=== PATIENT | male | born 1950 | race Caucasian/White ===

== ENCOUNTER 2024-04-28 22:35 | Inpatient (IN) | payer MEDICARE, BC, SELFPAY ==
--- NOTE | 2024-04-28 | ECG_ITS ---
Test Reason : A-FIB Blood Pressure : */* mmHG Vent. Rate : 91 BPM Atrial Rate : * BPM P-R Int : * ms QRS Dur : 90 ms QT Int : 340 ms P-R-T Axes : * -47 32 degrees QTcB Int : 418 ms Atrial fibrillation Left anterior fascicular block Abnormal ECG No previous ECGs available Referred By: Generic ED Physician Electronically Signed By: Robbie Cruz
--- NOTE | ~2024-04-28 | XR_ITS ---
CLINICAL HISTORY: sob 1 view chest x-ray Comparison: None Findings: No consolidation or effusion. Normal size heart. No acute fracture. IMPRESSION: 1. No acute findings. This document has been electronically signed by: Mulu Rodgers MD on 04/29/2024 01:10:02
[2024-04-28 22:47] VITALS: BP 96/67; PULSE 91; RESP 17; TEMP 36.6; O2SAT 100; BMI 21.8
--- NOTE | 2024-04-28 23:30 | MHC.EDTECH ---
Patient came in from triage, patient was changed into hospital attire,placed on the cardiac rehabilitation program director, at bedside call lopez in reach
[2024-04-28 23:40] LABS: MANUAL DIFF FLAG NO
[2024-04-28 23:41] LABS: Basophils Percent Auto 0.2 % (0-2); Eosinophils Percent Auto 0.5 % (0-4); Hematocrit 40.3 % (42.0-52.0); Hemoglobin 13.9 g/dl (14.0-18.0); Imm Gran Abs Auto 0.01 X10*3/uL (0.00-0.03); Imm Gran Pct Auto 0.2 % (0.0-0.4); Lymphocytes Absolute Auto 0.4 X10*3/uL (1.2-4.9); Lymphocytes Percent Auto 6.6 % (20-40); Mean Corpuscular HGB Conc 34.5 g/dl (31.0-36.0); Mean Corpuscular Hemoglobin 31.4 pg (27.0-33.0); Mean Platelet Volume 9.8 fL (9.4-12.4); Monocytes Absolute Auto 0.3 X10*3/uL (0.1-1.2); Monocytes Percent Auto 5.6 % (2-11); Neutrophils Absolute Auto 4.8 x10*3/uL (2.0-8.3); Neutrophils Percent Auto 86.9 % (45-73); Platelet Count 190 X10*3/uL (160-400); Red Blood Count 4.43 X10*6/uL (4.60-5.80); Red Cell Distribution Width 13.9 % (11.0-16.0); White Blood Count 5.5 X10*3/uL (4.8-10.8)
[2024-04-28 23:55] LABS: Alanine Aminotransferase 24 U/L (0-40); Albumin Level 3.9 g/dL (3.5-5.0); Alkaline Phosphatase 66 U/L (39-117); Anion Gap 10 (12-20); Aspartate Amino Transferase 36 U/L (5-37); Bilirubin Direct 0.2 mg/dL (0.0-0.5); Bilirubin Total 0.5 mg/dL (0.0-1.0); Blood Urea Nitrogen 24 mg/dL (9-16); Calcium 9.2 mg/dL (8.4-10.2); Carbon Dioxide 28 mmol/L (22-29); Chloride 104 mmol/L (96-108); Creatinine Clr Calc Pharmacy 73.9; Estimated Glomerular Filt Rate > 60; Glucose Random 95 mg/dL (60-115); Potassium 4.4 mmol/L (3.3-5.1); Sodium 138 mmol/L (135-145); Total Protein 7.1 g/dL (6.5-8.0)
[2024-04-29] VITALS (15 sets, daily range): BP systolic 85–106; BP diastolic 52–82; PULSE 58–99; RESP 10–18; TEMP 36.1–36.9; O2SAT 96–99; BMI 22.0
[2024-04-29] LABS: Troponin-I High Sensitivity 2.7 ng/L (<3.5-35.0)
[2024-04-29 00:26] LABS: B Type Natriuretic Peptide 105 pg/mL (<100)
--- NOTE | 2024-04-29 00:50 | ED_ITS ---
HPI - Arrhythmia/Palpitations General Chief Complaint: Arrhythmia/Palpitations Stated Complaint: ?a-fib Time Seen by Provider: 04/28/24 23:37 Source: patient and family Mode of arrival: ambulatory Limitations: no limitations History of Present Illness ED Provider: Dr. Isabella Bean HPI narrative: Patient comes to the emergency room accompanied by his . Patient states that his telephone karoline warned the patient that he was in atrial fibrillation with RVR. According to the patient, he does have history of AFib. However, it has been controlled for over 5 years. Patient recently moved from [place] with his . Patient states that earlier today he did have a bit of shortness of breath with going up the stairs. However, this time he is completely asymptomatic. 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 Since patient's heart rate and rhythm was controlled, patient's railroad track inspector in [place] took him off blood thinners. Patient denies any lower extremity edema. Patient states that he feels well. patient states that he is otherwise in good health. Patient exercises everyday, does 160 pushups everyday and over 200 sit-ups. Related Data Allergies Allergy/AdvReac Type Severity Reaction Status Date / Time No Known Allergies Allergy Verified 04/28/24 22:49 Review of Systems 2 Review of Systems: Constitutional : No Weight loss, No Fever, No Chills, No Night Sweats, No Fatigue, No Malaise ENT/Mouth : No Hearing loss, No Ear Pain, No Nasal Congestion, No Sinus Pain, No Hoarseness, No sore throat, No Rhinorrhea, No Swallowing Difficulty Eyes: No Eye Pain, No Swelling, No Redness, No Foreign Body, No Discharge, No Vision Changes Cardiovascular : No Chest Pain, No SOB, No Dyspnea on Exertion, No Orthopnea, does not feel any palpitations, states that his heart monitor/ phone karoline warned him of being in AFib with RVR Respiratory : No Cough, No Sputum, No Wheezing, No Smoke Exposure, No Dyspnea Gastrointestinal : No Nausea, No Vomiting, No Diarrhea, No Constipation, No abdominal Pain, No Hematochezia, No Melena Genitourinary : no irregular bleeding, No Dysuria, No Urinary Frequency, No Hematuria, No Urinary Incontinence, No Urgency, No Flank Pain, No Urinary Flow Changes, No Hesitancy Musculoskeletal : No joint pain, No Myalgias, No Joint Swelling Skin : No Skin Lesions, No rash Neuro : No Weakness, No Numbness, No Paresthesias, No Loss of Consciousness, No Dizziness, No Headache Psych : No Anxiety/Panic, No Depression, No SI/HI/AH/VH, No Social Issues, Heme/Lymph: No Bruising, No Bleeding,No Lymphadenopathy Endocrine : No Polyuria, No Polydipsia, No Temperature Intolerance [facility] Past Medical History Medical History (Updated 04/29/24 @ 01:13 by Isabella Bean MD) Hyperlipidemia Atrial fibrillation Surgical History (Updated 04/29/24 @ 00:57 by Isabella Bean MD) H/O aortic valve replacement with porcine valve Social History Social History Advance Directives: No Advance Directives Information Provided: Yes Do you have a plan to hurt others: No Plan Physical Exam 2 Vital Signs: Vital Signs: Last Vital Signs Temp 97.8 F 04/28/24 22:47 Pulse 91 04/28/24 22:47 Resp 17 04/28/24 22:47 BP 96/67 04/28/24 22:47 Pulse Ox 100 04/28/24 22:47 O2 Del Method Room Air 04/28/24 22:47 BMI result Body Mass Index 21.8 Const: Other: Appearance: Alert. Oriented X3. No acute distress. well-appearing Eyes: Pupils equal, round and reactive to light. ENT: Pharynx normal. Neck: Normal inspection. Neck supple. No lymph nodes noted. No crepitus CVS: irregularly irregular, rate controlled, heart rate between 90 and 100. Pulses normal. Normal S1 and S2 Respiratory: No respiratory distress. Breath sounds normal. No Wheezing. No rales Abdomen: Soft and nontender. No rigidity. No distention. Skin: Skin warm and dry. Normal skin color. Normal skin turgor. Extremities: No lower extremity edema. No Lacerations. No Rash Neuro: Oriented X 3. No motor deficit. No sensory deficit. Moving all extremities. No slurred speech. CN 2 through 12 grossly intact Psych: calm, cooperative, normal affect Medications Administered Discontinued Medications Generic Name Dose Route Start Last Admin Trade Name Freq PRN Reason Stop Dose Admin Apixaban 5 mg 04/29/24 00:46 04/29/24 00:52 Apixaban 5 Mg Tablet PO 04/29/24 00:47 5 mg ONCE ONE Administration Medical Decision Making Medical Decision Making [facility] Narrative: my interpretation of labs: No significant abnormality in patient's hematology or chemistry, troponin normal, BNP very slightly increased at 01:05. No signs of overt pulmonary edema. No lower extremity edema my interpretation of EKG: Atrial fibrillation, heart rate 91, nonspecific ST changes, no ST segment depression or elevation, QTC 418 discussed the patient with Dr. Cruz, we will Start Eliquis, and patient may need a DEVIN cardioversion tomorrow. I discussed the above-mentioned with the patient and his , patient being admitted. Dr. Rich from the Medicine team will help with the admission process Differential Diagnosis Differential Diagnoses: The differential diagnosis associated with the presentation includes ( atrial fibrillation, atrial flutter) Admission/Observation Consideration of admission/observation: Escalation of care including admission/observation considered Consult Healthcare Provider Management of the patient was discussed with: Hospitalist and Victims Advocate Clerk/Specialist Lab Data [facility] Lab Attestation statement: I reviewed the patient's lab results. 04/28/24 23:32 04/28/24 23:32 Labs: Lab Results 04/28/24 Range/Units 23:32 WBC 5.5 (4.8-10.8) X10*3/uL RBC 4.43 L (4.60-5.80) X10*6/uL Hgb 13.9 L (14.0-18.0) g/dl Hct 40.3 L (42.0-52.0) % MCV 91.0 (80.0-98.0) fL MCH 31.4 (27.0-33.0) pg MCHC 34.5 (31.0-36.0) g/dl RDW 13.9 (11.0-16.0) % Plt Count 190 (160-400) X10*3/uL MPV 9.8 (9.4-12.4) fL Immature Gran % (Auto) 0.2 (0.0-0.4) % Neut % (Auto) 86.9 H (45-73) % Lymph % (Auto) 6.6 L (20-40) % [place] % (Auto) 5.6 (2-11) % Eos % (Auto) 0.5 (0-4) % Baso % (Auto) 0.2 (0-2) % Lymph # (Auto) 0.4 L (1.2-4.9) X10*3/uL [place] # (Auto) 0.3 (0.1-1.2) X10*3/uL Eos # (Auto) 0.0 (0.0-0.4) X10*3/uL Baso # (Auto) 0.0 (0.0-0.2) X10*3/uL Abs Immat Gran (auto) 0.01 (0.00-0.03) X10*3/uL Absolute Neuts (auto) 4.8 (2.0-8.3) x10*3/uL Absolute Nucleated RBC 0.000 (0.0-0.012) X10*3/uL Nucleated RBC % (auto) 0.0 (0.0-0.2) /100WBC Sodium 138 (135-145) mmol/L Potassium 4.4 (3.3-5.1) mmol/L Chloride 104 (96-108) mmol/L Carbon Dioxide 28 (22-29) mmol/L Anion Gap 10 L (12-20) BUN 24 H (9-16) mg/dL Creatinine 0.88 (0.5-1.4) mg/dL Estim Creat Clear Calc 73.9 Estimated GFR > 60 Random Glucose 95 (60-115) mg/dL Calcium 9.2 (8.4-10.2) mg/dL Magnesium 2.0 (1.6-2.6) mg/dL Total Bilirubin 0.5 (0.0-1.0) mg/dL Direct Bilirubin 0.2 (0.0-0.5) mg/dL AST 36 (5-37) U/L ALT 24 (0-40) U/L Alkaline Phosphatase 66 (39-117) U/L Troponin I High Sens 2.7 (<3.5-35.0) ng/L B-Natriuretic Peptide 105 H (<100) pg/mL Total Protein 7.1 (6.5-8.0) g/dL Albumin 3.9 (3.5-5.0) g/dL Independent Interpretation I performed an independent interpretation of an: EKG and Plain X-Ray Radiology Impression Discussion of test interpretation with radiology: I have reviewed the radiologist's reading. Radiologist Impression: No consolidation or effusion. Normal size heart. No acute fracture. IMPRESSION: 1. No acute findings Independent Historian Clinical information obtained from an independent historian. History obtained from or confirmed by: Spouse Critical Care Time Critical Care Time Critical Care Time: Yes Total Critical Care Time: 45 Attestation: I have personally provided critical care time. Time includes review of lab data, radiology results, discussion with consultants, and monitoring for potential decompensation. Intervention performed as documented. Discharge Plan Discharge Clinical Impression: Atrial fibrillation Patient Disposition: Admitted As Inpatient Print Language: Afghan
[2024-04-29] MEDS: Apixaban 5 MG TABLET PO ×3 (00:52→21:23)
--- NOTE | 2024-04-29 01:00 | PM.IMHP ---
History of Present Illness Date of Service: 04/29/24 Chief Complaint: Palpitations This is a 74-year-old male with pertinent history of paroxysmal atrial fibrillation not on anticoagulation, mixed hyperlipidemia who presents to the emergency department for evaluation of palpitations. Patient states that he was notified by a device that he was in AFib. The last time he was in AFib was about 6 years ago. He is without any chest pain or shortness of breath. He recently moved from [place] with his . Patient had an aortic valve replacement in 2019 and was anticoagulated with Coumadin for 2 years and since then he has been off anticoagulation. No fever, chills, orthopnea, PND, abdominal pain, changes in urinary or bowel habits. Patient has no other complaints and exercises every day. In the emergency department, patient was found to be in AFib and Cardiology was consulted who requested admission with Parvez. Review of Systems Constitutional: Constitutional: Reports no additional constitutional complaints Cardiovascular: Cardiovascular: Reports rapid heart rate Respiratory: Respiratory: Reports no additional respiratory complaints Gastrointestinal: Gastrointestinal: Reports no additional gastrointestinal complaints Genitourinary: Genitourinary: Reports no additional male genitourinary complaints [facility] Medical History Hyperlipidemia Atrial fibrillation Pertinent family history: No family history of early CAD Surgical History H/O aortic valve replacement with porcine valve Social History Advance Directives: No Advance Directives Information Provided: Yes Do you have a plan to hurt others: No Plan Meds Allergies Allergy/AdvReac Type Severity Reaction Status Date / Time No Known Allergies Allergy Verified 04/28/24 22:49 Physical Exam Vital Signs and Narrative: Vital Signs: Last Vital Signs Temp 97.8 F 04/28/24 22:47 Pulse 91 04/28/24 22:47 Resp 17 04/28/24 22:47 BP 96/67 04/28/24 22:47 Pulse Ox 100 04/28/24 22:47 O2 Del Method Room Air 04/28/24 22:47 BMI result Body Mass Index 21.8 Middle-aged male lying in bed in no distress Neck supple, no JVD Irregularly irregular, S1-S2 heard Regular breath sounds bilaterally, no wheezing or crackles appreciated Abdomen soft nontender, no guarding, no rigidity Patient is awake, alert and oriented to self, place, time and person ; no focal motor deficit Psych: Normal mood No pedal edema Results Labs 04/28/24 23:32 04/28/24 23:32 Labs: Laboratory Results - last 24 hr 04/28/24 23:32 MCV 91.0 MCH 31.4 MCHC 34.5 RDW 13.9 Plt Count 190 MPV 9.8 Immature Gran % (Auto) 0.2 Neut % (Auto) 86.9 H Lymph % (Auto) 6.6 L [place] % (Auto) 5.6 Eos % (Auto) 0.5 Baso % (Auto) 0.2 Lymph # (Auto) 0.4 L [place] # (Auto) 0.3 Eos # (Auto) 0.0 Baso # (Auto) 0.0 Abs Immat Gran (auto) 0.01 Absolute Neuts (auto) 4.8 Absolute Nucleated RBC 0.000 Nucleated RBC % (auto) 0.0 Anion Gap 10 L Estim Creat Clear Calc 73.9 Estimated GFR > 60 Random Glucose 95 Calcium 9.2 Magnesium 2.0 Total Bilirubin 0.5 Direct Bilirubin 0.2 AST 36 ALT 24 Alkaline Phosphatase 66 B-Natriuretic Peptide 105 H Total Protein 7.1 Albumin 3.9 Assessment and Plan (1) Atrial fibrillation: Status: Acute Plan This is a 74-year-old male with pertinent history of paroxysmal atrial fibrillation not on anticoagulation, mixed hyperlipidemia who presents to the emergency department for evaluation of palpitations. #. Atrial fibrillation, symptomatic: Will admit patient with cardiac monitoring as per Cardiology recommendations. Initiating Eliquis. Obtaining TSH and echo. May need DEVIN cardioversion. On beta-sheri #. Mixed hyperlipidemia: On statin Med rec pending DVT prophylaxis: Eliquis Full code Quality Stroke Does the patient have a stroke diagnosis?: No VTE Prior VTE?: No VTE Risk Level:: Medical - moderate - high VTE Device Contraindication: Treatment Not Indicated VTE Drug Contraindication: N/A - Med Ordered
--- NOTE | 2024-04-29 02:23 | MHC.EDTECH ---
Rounds, vitals and belongings list completed, pt is resting quietly call lopez in reach
[2024-04-29 04:46] LABS: Hematocrit 37.2 % (42.0-52.0); Hemoglobin 13.1 g/dl (14.0-18.0); Mean Corpuscular HGB Conc 35.2 g/dl (31.0-36.0); Mean Corpuscular Hemoglobin 31.6 pg (27.0-33.0); Mean Corpuscular Volume 89.6 fL (80.0-98.0); Mean Platelet Volume 10.1 fL (9.4-12.4); Platelet Count 173 X10*3/uL (160-400); Red Blood Count 4.15 X10*6/uL (4.60-5.80); Red Cell Distribution Width 13.9 % (11.0-16.0); White Blood Count 4.7 X10*3/uL (4.8-10.8)
[2024-04-29 05:04] LABS: Anion Gap 10 (12-20); Blood Urea Nitrogen 23 mg/dL (9-16); Calcium 8.5 mg/dL (8.4-10.2); Carbon Dioxide 24 mmol/L (22-29); Chloride 106 mmol/L (96-108); Creatinine Clr Calc Pharmacy 97.1; Estimated Glomerular Filt Rate > 60; Glucose Random 104 mg/dL (60-115); Sodium 136 mmol/L (135-145)
[2024-04-29 05:21] LABS: Thyroid Stimulating Hormone 3.28 uIU/mL (0.32-4.0)
--- NOTE | 2024-04-29 07:00 | CA_ITS ---
Transesophageal Echocardiogram Patient (Last, First, Middle): Markel Summers K Gender: Male Date of : 1950 Age: 74 Procedure Date: 04/29/2024 Procedure Type: Transesophageal Echocardiogram Location: OP Height: 177.8 cm Weight: 68.95 kg BSA: 1.86 m2 Heart Rate: bpm BP: 102 / 78 mmHg Manager Of Investigations: CHRISSIE Referring MD: Robbie Cruz MD Symptoms: Afib Conclusion: ??? Normal left ventricular size and systolic function. The visually estimated ejection fraction is between 55-60%. ??? Normal right ventricular cavity size and systolic function. ??? There is no evidence of a thrombus in the left atrial appendage. ??? A bioprosthetic aortic valve is present. Findings Procedure Information Pre DEVIN oral cavity was checked and revealed no overcrowding. The adult omniplane probe was passed with difficulty. Left Ventricle Normal left ventricular size and systolic function. The visually estimated ejection fraction is between 55-60%. Right Ventricle Normal right ventricular cavity size and systolic function. Atria There is no evidence of a thrombus in the left atrial appendage. Aortic Valve A bioprosthetic aortic valve is present. The prosthetic aortic valve appears to be functioning normally. Mitral Valve The mitral valve appears normal. There is trace mitral valve regurgitation. There is no mitral valve stenosis. Pulmonic Valve The pulmonic valve was not well visualized. Tricuspid Valve Normal tricuspid valve structure. There is trace tricuspid valve regurgitation. Great Vessels All visible segments of the aorta are normal in size. Pericardium/Pleural There is no evidence of pericardial effusion. Prior Study Comparison No prior study available for comparison. Updated by Robbie Cruz on 01:05 PM with Status of Final Robbie Cruz MD electronically signed on 05/01/2024 1:05:41 PM with status of Final
--- NOTE | 2024-04-29 08:55 | MHC.CM.PN ---
CM met with Patient and his (a RN X 44r years), and addressed LOPEZ with them, providing Patient with the original and a copy will be placed on the chart.Patient just moved here from [place] about a month ago, is waiting to move into a new [facility] home here, and is temporarily staying with his Sister (at listed address). Patient required no services nor DME RABBLER and home/self care is his goal; CM has initiated and will follow for dc planning. PCP is Dr. Joon Regalado in [place]. will transport to home at [place].
--- NOTE | 2024-04-29 09:04 | PHA.MEDREC ---
Addendum entered by Edd Sawyer [facility] 04/29/24 09:14: MED REC CHECKED BY [facility] Original Note: Pharmacy Consult ? Medication Reconciliation Pharmacy has completed the medication reconciliation. Spoke with patient and he confirmed his medications. Patient confirmed his Metoprolol 25mg tab and states he cuts them in half and takes 1/2 tab twice a day. He confirmed he took his medications yesterday.
[2024-04-29] MEDS: 0.9 % Sodium Chloride Flush 3 ML SYRINGE IVFLUSH ×2 (09:13→21:25)
[2024-04-29] MEDS: Atorvastatin Calcium 20 MG TABLET PO (10:20)
--- NOTE | 2024-04-29 11:26 | P.PNIM_ITS ---
Subjective Subjective Date of Service: 04/29/24 Interval History: asymptomatic Physical Exam 2 Vital Signs: Vital Signs: Last Vital Signs Temp 97.6 F 04/29/24 11:02 Pulse 88 04/29/24 11:02 Resp 18 04/29/24 11:02 BP 106/67 04/29/24 11:02 Pulse Ox 96 04/29/24 11:02 O2 Del Method Room Air 04/29/24 11:02 BMI result Body Mass Index 21.8 General: AO X 3, no acute distress Resp: CTA bilateral, no accessory muscles used CVS: S1,S2 irreglar GI: soft, non tender, non distended Neuro: motor grossly intact, alert Psych: appropriate affect, appropriate insight Objective Data Active Medications Acetaminophen (Acetaminophen 325 Mg Tablet) 650 mg PO Q6H PRN PRN Reason: Pain, Mild 1-3,fever,headache Apixaban (Apixaban 5 Mg Tablet) 5 mg PO BID [facility] Last Admin: 04/29/24 09:12 Dose: 5 mg Documented By: GINO Atorvastatin Calcium (Atorvastatin Calcium 20 Mg Tablet) 20 mg PO DAILY [facility] Last Admin: 04/29/24 10:20 Dose: 20 mg Documented By: GINO Calcium Carbonate (Calcium Carbonate 750 Mg Tab.Chew) 750 mg PO Q4H PRN PRN Reason: Heartburn Magnesium Hydroxide (Milk Of Magnesia 30 Ml Oral.Susp) 30 ml PO DAILY PRN PRN Reason: Constipation Melatonin (Melatonin 3 Mg Tablet) 6 mg PO BEDTIME PRN PRN Reason: Insomnia Metoprolol Succinate (Metoprolol Succinate Er 12.5 Mg Halftab.Er.24h) 12.5 mg PO BID [facility]; Protocol Ondansetron HCl (Ondansetron Hcl 4 Mg/2 Ml Vial) 4 mg IVPUSH Q8H PRN PRN Reason: Nausea and Vomiting Sodium Chloride (0.9 % Sodium Chloride Flush 3 Ml Syringe) 3 ml IVFLUSH QSHIFT [facility] Last Admin: 04/29/24 09:13 Dose: 3 ml Documented By: GINO Labs 04/29/24 04:32 04/29/24 04:32 Labs: Laboratory Results - last 24 hr 04/28/24 04/29/24 23:32 04:32 MCV 91.0 89.6 MCH 31.4 31.6 MCHC 34.5 35.2 RDW 13.9 13.9 Plt Count 190 173 MPV 9.8 10.1 Immature Gran % (Auto) 0.2 Neut % (Auto) 86.9 H Lymph % (Auto) 6.6 L [place] % (Auto) 5.6 Eos % (Auto) 0.5 Baso % (Auto) 0.2 Lymph # (Auto) 0.4 L [place] # (Auto) 0.3 Eos # (Auto) 0.0 Baso # (Auto) 0.0 Abs Immat Gran (auto) 0.01 Absolute Neuts (auto) 4.8 Absolute Nucleated RBC 0.000 0.000 Nucleated RBC % (auto) 0.0 0.0 Anion Gap 10 L 10 L Estim Creat Clear Calc 73.9 97.1 Estimated GFR > 60 > 60 Random Glucose 95 104 Calcium 9.2 8.5 D Magnesium 2.0 Total Bilirubin 0.5 Direct Bilirubin 0.2 AST 36 ALT 24 Alkaline Phosphatase 66 B-Natriuretic Peptide 105 H Total Protein 7.1 Albumin 3.9 TSH 3.28 Assessment and Plan (1) Atrial fibrillation: Status: Acute Plan 74M PMH hld, pafib, bicuspid aortic valve s/p bioAVR, presented with palpitations pafib with rvr plan for ynes/cv eliquis, toprol hld statin dvt prophyalxis - elqius full code reason for continued hospitalization:ynes/cv Quality Stroke Does the patient have a stroke diagnosis?: No VTE Prior VTE?: No VTE Risk Level:: Medical - moderate - high VTE Device Contraindication: Treatment Not Indicated VTE Drug Contraindication: N/A - Med Ordered
--- NOTE | 2024-04-29 11:34 | PM.CNCAR ---
History of Present Illness History of Present Illness Date of Service: 04/29/24 Requesting physician: Alexis Desai Chief complaint: Palpitations PAF Narrative: 74 male with h/o bicuspid AV stenosis s/p AVR 6 years ago and h/o Afib. He was taken off the coumadin by his mine equipment design engineer in [place]. he has been experiencing SOB over the last 2 days. He has no CP. Clinically not in HF. ECG showing Afib. [facility] Past Medical History Medical History Hyperlipidemia Atrial fibrillation Surgical History Surgical History H/O aortic valve replacement with porcine valve Social History Social History Are you a primary cardiac care nurse to a significant other at home: No Do you presently have visiting nurse or other home services: No Patient Tobacco Use Status: Never used Tobacco Smoked in Last 30 Days: No Use of substances other than those prescribed or required for medical reasons: No Have you been hit, kicked, punched, or otherwise hurt by someone within the past year? If so, by whom?: No Are you DNR?: No Advance Directives: No Advance Directives Information Provided: Yes Do you have a plan to hurt others: No Plan Recently lost weight without trying: No Nutrition Risks: No Nutritional Risk service: Yes Meds Allergies Allergy/AdvReac Type Severity Reaction Status Date / Time No Known Allergies Allergy Verified 04/29/24 14:08 Active Medications: Current Medications Acetaminophen (Acetaminophen 325 Mg Tablet) 650 mg PO Q6H PRN PRN Reason: Pain, Mild 1-3,fever,headache Apixaban (Apixaban 5 Mg Tablet) 5 mg PO BID [facility] Last Admin: 04/29/24 09:12 Dose: 5 mg Atorvastatin Calcium (Atorvastatin Calcium 20 Mg Tablet) 20 mg PO DAILY [facility] Last Admin: 04/29/24 10:20 Dose: 20 mg Calcium Carbonate (Calcium Carbonate 750 Mg Tab.Chew) 750 mg PO Q4H PRN PRN Reason: Heartburn Magnesium Hydroxide (Milk Of Magnesia 30 Ml Oral.Susp) 30 ml PO DAILY PRN PRN Reason: Constipation Melatonin (Melatonin 3 Mg Tablet) 6 mg PO BEDTIME PRN PRN Reason: Insomnia Metoprolol Succinate (Metoprolol Succinate Er 12.5 Mg Halftab.Er.24h) 12.5 mg PO BID [facility]; Protocol Ondansetron HCl (Ondansetron Hcl 4 Mg/2 Ml Vial) 4 mg IVPUSH Q8H PRN PRN Reason: Nausea and Vomiting Sodium Chloride (0.9 % Sodium Chloride Flush 3 Ml Syringe) 3 ml IVFLUSH QSHIFT [facility] Last Admin: 04/29/24 09:13 Dose: 3 ml Home Medications ?Medication ?Instructions ?Recorded ?Confirmed ?Last Taken ?Type metoprolol succinate 25 mg 12.5 mg PO BID 04/29/24 04/29/24 04/28/24 History tablet,extended release 24 hr rosuvastatin 5 mg tablet 5 mg PO DAILY 04/29/24 04/29/24 04/28/24 History Physical Exam Vital Signs: Vital Signs: Last Vital Signs Temp 97.6 F 04/29/24 11:02 Pulse 88 04/29/24 11:02 Resp 18 04/29/24 11:02 BP 106/67 04/29/24 11:02 Pulse Ox 96 04/29/24 11:02 O2 Del Method Room Air 04/29/24 11:02 BMI result Body Mass Index 21.8 GENERAL APPEARANCE: in no acute distress, pleasant. NECK: no carotid bruit, no jugular venous distention. SKIN: no suspicious lesions, warm and dry. HEART: no murmurs, irregular rate and rhythm. LUNGS: clear to auscultation bilaterally. ABDOMEN: soft, nontender. EXTREMITIES: no edema. PERIPHERAL PULSES: equal. NEUROLOGIC: No gross deficits, AAO X 3 Objective Labs and Meds 04/29/24 04:32 04/29/24 04:32 Lab results: Laboratory Results - last 24 hr 04/28/24 04/29/24 23:32 04:32 WBC 5.5 4.7 L RBC 4.43 L 4.15 L Hgb 13.9 L 13.1 L Hct 40.3 L 37.2 L MCV 91.0 89.6 MCH 31.4 31.6 MCHC 34.5 35.2 RDW 13.9 13.9 Plt Count 190 173 MPV 9.8 10.1 Immature Gran % (Auto) 0.2 Neut % (Auto) 86.9 H Lymph % (Auto) 6.6 L [place] % (Auto) 5.6 Eos % (Auto) 0.5 Baso % (Auto) 0.2 Lymph # (Auto) 0.4 L [place] # (Auto) 0.3 Eos # (Auto) 0.0 Baso # (Auto) 0.0 Abs Immat Gran (auto) 0.01 Absolute Neuts (auto) 4.8 Absolute Nucleated RBC 0.000 0.000 Nucleated RBC % (auto) 0.0 0.0 Sodium 138 136 Potassium 4.4 4.0 Chloride 104 106 Carbon Dioxide 28 24 Anion Gap 10 L 10 L BUN 24 H 23 H Creatinine 0.88 0.67 Estim Creat Clear Calc 73.9 97.1 Estimated GFR > 60 > 60 Random Glucose 95 104 Calcium 9.2 8.5 D Magnesium 2.0 Total Bilirubin 0.5 Direct Bilirubin 0.2 AST 36 ALT 24 Alkaline Phosphatase 66 Troponin I High Sens 2.7 B-Natriuretic Peptide 105 H Total Protein 7.1 Albumin 3.9 TSH 3.28 Assessment and Plan (1) Atrial fibrillation: Status: Acute Plan 74 male with symptomatic Afib. Plan is DEVIN/cardioversion. Started on Eliquis. Will start him on Multaq post cardioversion. We will follow along. Procedures Date of Service Date of Service: 04/29/24
--- NOTE | 2024-04-29 13:06 | MHC.CM.PN ---
Addendum entered by Yin Gant 04/29/24 15:05: Patient does have Medicare. CM attempted to meet with Patient in the ED, in room 19 and in ED Overflow, but Patient was not in either location. CM will attempt again to meet with him to address the IMM. CM will follow. Original Note: Patient has been switched from OBSERVATION to INPATIENT; CM has confirmed with UR RN that IMM is not needed. CM will follow.
--- NOTE | 2024-04-29 13:54 | P.CONAN_ITS ---
HPI - Anesthesia Eval Consult details Narrative: for DEVIN cardioversion COUNT INCLUDES THE [facility] Active Problems Active Problems: All Active Problems Atrial fibrillation (Acute) Past Medical History Medical History Hyperlipidemia Atrial fibrillation Family History Family history of problems with anesthesia: No Surgical History Surgical History H/O aortic valve replacement with porcine valve History of Problems with Anesthesia: No Social History Social History Patient Tobacco Use Status: Never used Tobacco Smoked in Last 30 Days: No Use of substances other than those prescribed or required for medical reasons: No Advance Directives: No Advance Directives Information Provided: Yes Do you have a plan to hurt others: No Plan Nutrition Risks: No Nutritional Risk service: Yes Meds Allergies Allergy/AdvReac Type Severity Reaction Status Date / Time No Known Allergies Allergy Verified 04/28/24 22:49 Active Medications: Current Medications Acetaminophen (Acetaminophen 325 Mg Tablet) 650 mg PO Q6H PRN PRN Reason: Pain, Mild 1-3,fever,headache Apixaban (Apixaban 5 Mg Tablet) 5 mg PO BID [facility] Last Admin: 04/29/24 09:12 Dose: 5 mg Atorvastatin Calcium (Atorvastatin Calcium 20 Mg Tablet) 20 mg PO DAILY [facility] Last Admin: 04/29/24 10:20 Dose: 20 mg Calcium Carbonate (Calcium Carbonate 750 Mg Tab.Chew) 750 mg PO Q4H PRN PRN Reason: Heartburn Magnesium Hydroxide (Milk Of Magnesia 30 Ml Oral.Susp) 30 ml PO DAILY PRN PRN Reason: Constipation Melatonin (Melatonin 3 Mg Tablet) 6 mg PO BEDTIME PRN PRN Reason: Insomnia Metoprolol Succinate (Metoprolol Succinate Er 12.5 Mg Halftab.Er.24h) 12.5 mg PO BID [facility]; Protocol Ondansetron HCl (Ondansetron Hcl 4 Mg/2 Ml Vial) 4 mg IVPUSH Q8H PRN PRN Reason: Nausea and Vomiting Sodium Chloride (0.9 % Sodium Chloride Flush 3 Ml Syringe) 3 ml IVFLUSH QSHIFT [facility] Last Admin: 04/29/24 09:13 Dose: 3 ml Home Medications ?Medication ?Instructions ?Recorded ?Confirmed ?Last Taken ?Type metoprolol succinate 25 mg 12.5 mg PO BID 04/29/24 04/29/24 04/28/24 History tablet,extended release 24 hr rosuvastatin 5 mg tablet 5 mg PO DAILY 04/29/24 04/29/24 04/28/24 History Exam Height,Weight and Vital Signs: Height 5 ft 10 in Weight 68.946 kg Last Vital Signs Temp 97.6 F 04/29/24 11:02 Pulse 99 04/29/24 12:20 Resp 18 04/29/24 11:02 BP 106/67 04/29/24 11:02 Pulse Ox 96 04/29/24 11:02 O2 Del Method Room Air 04/29/24 11:02 Pertinent Lab Results Pertinent Lab Results: Laboratory Tests 04/28/24 04/29/24 23:32 04:32 WBC 5.5 4.7 L RBC 4.43 L 4.15 L Hgb 13.9 L 13.1 L Hct 40.3 L 37.2 L MCV 91.0 89.6 MCH 31.4 31.6 MCHC 34.5 35.2 RDW 13.9 13.9 Plt Count 190 173 MPV 9.8 10.1 Immature Gran % (Auto) 0.2 Neut % (Auto) 86.9 H Lymph % (Auto) 6.6 L [place] % (Auto) 5.6 Eos % (Auto) 0.5 Baso % (Auto) 0.2 Lymph # (Auto) 0.4 L [place] # (Auto) 0.3 Eos # (Auto) 0.0 Baso # (Auto) 0.0 Abs Immat Gran (auto) 0.01 Absolute Neuts (auto) 4.8 Absolute Nucleated RBC 0.000 0.000 Nucleated RBC % (auto) 0.0 0.0 Sodium 138 136 Potassium 4.4 4.0 Chloride 104 106 Carbon Dioxide 28 24 Anion Gap 10 L 10 L BUN 24 H 23 H Creatinine 0.88 0.67 Estim Creat Clear Calc 73.9 97.1 Estimated GFR > 60 > 60 Random Glucose 95 104 Calcium 9.2 8.5 D Magnesium 2.0 Total Bilirubin 0.5 Direct Bilirubin 0.2 AST 36 ALT 24 Alkaline Phosphatase 66 Troponin I High Sens 2.7 B-Natriuretic Peptide 105 H Total Protein 7.1 Albumin 3.9 TSH 3.28 Airway Mallampati Class: II TM Dist: >3cm Neck ROM: Full Heart: rrr Lungs: cta Assessment and Plan Assessment Anesthesia Assessment: Anesthesia Plan Discussed Final Anesthetic Review Family History of Problems with Anesthesia: No History of Problems with Anesthesia: No NPO: Yes ASA Class: III Final Preanesthetic Review: No Changes in Pt Med Stat, Meds/Allgs Chart Reviewed, Consent Obtained/Reviewed and Anes Risks/Benef Reviewed Patient Risk: Intermediate Procedure Risk: Low Anesthetic Plan Anesthetic Plan: MAC: Disposition: Standard PACU
[2024-04-29] MEDS: Lactated Ringers 1,000 ML 80 ML IVCONT (14:23)
--- NOTE | 2024-04-29 14:29 | MHC.SHP ---
Pre-Procedural Eval Section A - 24 Hr Update-Section A only Date of Service: 04/29/24 The patient is an INPATIENT: Yes Section B - Complete if H&P > 30 days Chief Complaint: Palpitations PAF Allergies: Allergies Allergy/AdvReac Type Severity Reaction Status Date / Time No Known Allergies Allergy Verified 04/29/24 14:08 Plan Diagnosis/Plan: Unchanged I have reviewed the history and physical and performed a pertinent physical examination on my patient. No changes have occurred unless specified. Time Spent With Patient Time: Total time managing care of this patient today ____ minutes.
--- NOTE | 2024-04-29 15:04 | P.PNCAR_ITS ---
Cardioversion Procedure Note Cardioversion Date of Procedure: 04/29/24 Ordering Provider: Robbie Cruz MD Performing Provider: Robbie Cruz MD Indication for Procedure: Symptomatic Afib. Performed with Transesophageal Echo: Yes DEVIN findings (if DEVIN Performed): no LA or HIRA thrombus. History: 74 male with symptomatic PAF. Consent: Verbal and Written consent was obtained from the patient before starting. The patient was made aware of the risk of stroke, failure, skin burn and arrhythmia Procedure: After consent obtained, defib pads were attached and the patient was sedated by the anesthesia team. Once adequate sedation achieved, singled synchronized shock of 150 J was given. The patient converted to sinus rhythm. No acute complicati ons. Recommendations: c/w Apixaban 5 mg BID. Add Multaq 400 mg BID.
[2024-04-29] MEDS: Metoprolol Succinate ER 12.5 MG HALFTAB.ER.24H PO (21:23)
[2024-04-29] MEDS: Dronedarone HCl 400 MG TABLET PO (21:24)
[2024-04-30] VITALS: BP 102/66; PULSE 61; TEMP 36; O2SAT 98
--- NOTE | 2024-04-30 02:56 | PC.NURSE ---
1900 04/29/24 RN handover received and acquired care of pt. Met pt., alert and oriented and denies any symptoms. No c/o pain/sob. at bedside last night. Pt. NSR 60's to low 70's last night and received scheduled meds. SBP in 100's, pt. denies lightheadedness and runs low at baseline per pt. At 02: 06 pt. noted to be in A.Fib 60-70's. Pt. resting with eyes closed in bed, even/regular respirations/no distress. 02:[address] Rich. Will cont. to follow plan of care.
[2024-04-30 04:00] VITALS: BP 86/58; PULSE 74; RESP 16; TEMP 36.1; O2SAT 96
[2024-04-30] MEDS: Lactated Ringers 1,000 ML 999 ML IV (06:04)
--- NOTE | 2024-04-30 06:46 | PC.NURSE ---
BP at 0400 86/58, pt. denies any symptoms. HR [address] Rich notified. LR bolus ordered x1. pt. converted to SR at 0420.
[2024-04-30 06:51] LABS: Hematocrit 42.4 % (42.0-52.0); Hemoglobin 14.2 g/dl (14.0-18.0); Mean Corpuscular HGB Conc 33.5 g/dl (31.0-36.0); Mean Corpuscular Hemoglobin 30.9 pg (27.0-33.0); Mean Corpuscular Volume 92.4 fL (80.0-98.0); Mean Platelet Volume 10.5 fL (9.4-12.4); Platelet Count 181 X10*3/uL (160-400); Red Blood Count 4.59 X10*6/uL (4.60-5.80); Red Cell Distribution Width 14.1 % (11.0-16.0); White Blood Count 4.3 X10*3/uL (4.8-10.8)
[2024-04-30 07:03] LABS: Anion Gap 11 (12-20); Blood Urea Nitrogen 14 mg/dL (9-16); Carbon Dioxide 27 mmol/L (22-29); Chloride 106 mmol/L (96-108); Creatinine Clr Calc Pharmacy 87.7; Estimated Glomerular Filt Rate > 60; Glucose Random 99 mg/dL (60-115); Magnesium 1.9 mg/dL (1.6-2.6); Potassium 4.5 mmol/L (3.3-5.1); Sodium 139 mmol/L (135-145)
[2024-04-30 07:50] VITALS: BP 118/77; PULSE 54; RESP 18; TEMP 36.4; O2SAT 100
[2024-04-30] MEDS: Apixaban 5 MG TABLET PO (08:10)
[2024-04-30] MEDS: Atorvastatin Calcium 20 MG TABLET PO (08:10)
[2024-04-30] MEDS: Dronedarone HCl 400 MG TABLET PO (08:10)
--- NOTE | 2024-04-30 08:17 | HO.POSTANES ---
Post Anesthesia Evaluation Post Anesthesia Evaluation Date of Service: 04/30/24 Vital Signs: Vital Signs Temp Pulse Resp BP Pulse Ox O2 Del Method 04/30/24 07:50 97.6 F 54 18 118/77 100 Room Air 04/30/24 04:00 96.9 F 74 16 86/58 L 96 Room Air 04/30/24 00:00 96.8 F 61 102/66 98 Room Air Anesthesia: Monitored Mental Status: Awake Pain Control: Satisfactory Nausea/Vomiting: None Hydration: Adequate Anesthesia-Related Issues: No Anes. Related Issues
[2024-04-30 08:18] VITALS: PULSE 53
[2024-04-30] MEDS: 0.9 % Sodium Chloride Flush 3 ML SYRINGE IVFLUSH (08:19)
--- NOTE | 2024-04-30 08:41 | MHC.CM.PN ---
CM met with Patient at bedside and addressed IMM with him, providing Patient with the original and a copy has been placed on the chart.
[2024-04-30 11:10] VITALS: BP 106/59; PULSE 58; RESP 18; TEMP 36.6; O2SAT 98
--- NOTE | 2024-04-30 12:56 | PM.PNCARD ---
Subjective Subjective Date of Service: 04/30/24 Interval history: Seen and examined bedside. In sinus rhythm since cardioversion Physical Exam Vital Signs: Last Vital Signs Temp 97.8 F 04/30/24 11:10 Pulse 58 04/30/24 11:10 Resp 18 04/30/24 11:10 BP 106/59 L 04/30/24 11:10 Pulse Ox 98 04/30/24 11:10 O2 Del Method Room Air 04/30/24 11:10 O2 Flow Rate 6 04/29/24 15:20 BMI result Body Mass Index 22.0 GENERAL APPEARANCE: in no acute distress, pleasant. NECK: no carotid bruit, no jugular venous distention. SKIN: midline sternotomy scar. HEART: no murmurs, regular rate and rhythm. LUNGS: clear to auscultation bilaterally. ABDOMEN: soft, nontender. EXTREMITIES: no edema. PERIPHERAL PULSES: equal. NEUROLOGIC: No gross deficits, AAO X 3 Objective Labs and Meds 04/30/24 05:49 04/30/24 05:49 Lab results: Laboratory Results - last 24 hr 04/30/24 05:49 WBC 4.3 L RBC 4.59 L Hgb 14.2 Hct 42.4 MCV 92.4 MCH 30.9 MCHC 33.5 RDW 14.1 Plt Count 181 MPV 10.5 Absolute Nucleated RBC 0.000 Nucleated RBC % (auto) 0.0 Sodium 139 Potassium 4.5 Chloride 106 Carbon Dioxide 27 Anion Gap 11 L BUN 14 Creatinine 0.75 Estim Creat Clear Calc 87.7 Estimated GFR > 60 Random Glucose 99 Calcium 9.0 Magnesium 1.9 Progress Note: A&P Assessment and plan (1) Atrial fibrillation: Status: Acute Assessment and Plan: [age] gentleman with symptomatic atrial fibrillation. He underwent DEVIN cardioversion successfully. Started on Multaq and apixaban 5 mg twice a day. In sinus rhythm. Feeling good. He will follow up with us in few weeks. Time Spent With Patient Time: Total time managing care of this patient today ____ minutes. Progress Note: Quality Stroke Does the patient have a stroke diagnosis?: No Procedures Date of Service Date of Service: 04/30/24
--- NOTE | 2024-04-30 13:02 | P.DS_ITS ---
DS: Providers Provider Date of Service: 04/30/24 Date of admission: 04/29/24 11:45 Date of discharge: 04/30/24 Primary care physician: Joon Regalado Consults: 04/29/24 01:00 Consult to Cardiology Routine Consulting Provider: [facility] [place] [facility] Reason for consultation: afib Has provider been notified: Yes DS: Diagnosis Discharge Diagnosis (1) Atrial fibrillation: Status: Acute DS: Summary Hospital Course Hospital Course: inti 74-year-old male with pertinent history of paroxysmal atrial fibrillation not on anticoagulation, mixed hyperlipidemia who presents to the emergency department for evaluation of palpitations. Patient states that he was notified by a device that he was in AFib. The last time he was in AFib was about 6 years ago. He is without any chest pain or shortness of breath. He recently moved from [place] with his . Patient had an aortic valve replacement in 2019 and was anticoagulated with Coumadin for 2 years and since then he has been off anticoagulation. No fever, chills, orthopnea, PND, abdominal pain, changes in urinary or bowel habits. Patient has no other complaints and exercises every day. In the emergency department, patient was found to be in AFib and Cardiology was consulted who requested admission with Eliquis. hospital course: Patient was admitted for paroxysmal atrial fibrillation with rapid ventricular response. He underwent DEVIN and cardioversion successfully. Was started on Multaq and Eliquis. Was asymptomatic and will be discharged home. For hyperlipidemia continued on statin. Time Attestation Discharge Coordination Time (in mins): 35 Quality: Safe Use of Opioids Does Pt have an Active Cancer Diagnosis on the Problem List?: No Quality: Stroke Does the patient have a stroke diagnosis?: No Physical Exam Vital Signs: Vital Signs: Last Vital Signs Temp 97.8 F 04/30/24 11:10 Pulse 58 04/30/24 11:10 Resp 18 04/30/24 11:10 BP 106/59 L 04/30/24 11:10 Pulse Ox 98 04/30/24 11:10 O2 Del Method Room Air 04/30/24 11:10 O2 Flow Rate 6 04/29/24 15:20 BMI result Body Mass Index 22.0 General: AO X 3, no acute distress Resp: CTA bilateral, no accessory muscles used CVS: S1,S2,RRR GI: soft, non tender, non distended Neuro: motor grossly intact, alert Psych: appropriate affect, appropriate insight DS: Data Data Completed and Pending Labs on day of discharge: Laboratory Results - last 24 hr 04/30/24 05:49 WBC 4.3 L RBC 4.59 L Hgb 14.2 Hct 42.4 MCV 92.4 MCH 30.9 MCHC 33.5 RDW 14.1 Plt Count 181 MPV 10.5 Absolute Nucleated RBC 0.000 Nucleated RBC % (auto) 0.0 Sodium 139 Potassium 4.5 Chloride 106 Carbon Dioxide 27 Anion Gap 11 L BUN 14 Creatinine 0.75 Estim Creat Clear Calc 87.7 Estimated GFR > 60 Random Glucose 99 Calcium 9.0 Magnesium 1.9 Discharge Plan Discharge Anticipated Discharge Date/Time: 04/30/24 13:00 Patient Disposition: Home, Self-Care Discharge Diagnosis: afib Referrals: Joon Regalado [Other] - 1 Week Discharge Medications: New Eliquis 5 mg Tablet 5 mg PO BID Qty: 180 0RF Multaq 400 mg Tablet 400 mg PO BID Qty: 180 0RF Continued metoprolol succinate 25 mg tablet extended release 24 hr 12.5 mg PO BID rosuvastatin 5 mg tablet 5 mg PO DAILY Discharge Orders: Discharge Order (Routine); Ordered 04/30/24 Ordered By: Alexis Desai Diet: Advance to usual diet Activity on Discharge: As tolerated Stand Alone Forms: Patient Portal Discharge page Print Language: Dominican Care Plan Goals: manage afib Health Concerns: afib Plan of Treatment: petey garcia toprol Assessment: see above
--- NOTE | 2024-04-30 13:12 | MHC.CM.PN ---
Patient has been medically cleared for dc to home today, self care.
== END 2024-04-30 14:51 | disposition home or self-care (01) | DRG 310 ==
LOC: HO.ED 04-29 01:13 → HO.EDOVER 04-29 01:36 → HO.IMC 04-29 15:46
PROVIDERS: Internal Medicine Cardiovascular Disease; Admitting Provider Student in an Organized Health Care Education/Training Program; Emergency Provider Emergency Medicine; Visit Provider Internal Medicine
PROC: 5A2204Z Restoration of Cardiac Rhythm, Single (ICD-10-PCS; CPT 93312; principal; 2024-04-29 15:00)
PROC: 5A2204Z Restoration of Cardiac Rhythm, Single (ICD-10-PCS; 2024-04-29 15:00)
DX: I48.0 Paroxysmal atrial fibrillation (principal); E78.2 Mixed hyperlipidemia; Z95.2 Presence of prosthetic heart valve; Z79.899 Other long term (current) drug therapy
CPT/HCPCS: 36415; 71045; 80048; 80076; 83735; 83880; 84443; 84484; 85025; 85027; 92960; 93005; 99222; 99285; J2003; J2704; J3010; J7120; Q9957

== ENCOUNTER → 2024-04-28 22:42 | Outpatient (BNV) | payer BC, SELFPAY | PROVIDERS: Admitting Provider Student in an Organized Health Care Education/Training Program; Emergency Provider Emergency Medicine; Visit Provider Internal Medicine Cardiovascular Disease | DX: I48.91 Unspecified atrial fibrillation (principal) | CPT/HCPCS: 93010 ==

== ENCOUNTER → 2024-04-29 00:18 | Outpatient (BNV) | payer BC, SELFPAY | PROVIDERS: Admitting Provider Student in an Organized Health Care Education/Training Program; Emergency Provider Emergency Medicine; Visit Provider Radiology Diagnostic Radiology | DX: R06.02 Shortness of breath (principal) | CPT/HCPCS: 71045 ==

== ENCOUNTER → 2024-04-29 00:59 | Outpatient (BNV) | payer BC, SELFPAY | PROVIDERS: Admitting Provider Student in an Organized Health Care Education/Training Program; Emergency Provider Emergency Medicine; Visit Provider Student in an Organized Health Care Education/Training Program | DX: I48.91 Unspecified atrial fibrillation (principal) | CPT/HCPCS: 99222; 99499 ==

== ENCOUNTER → 2024-04-29 11:45 | Outpatient (BNV) | payer BC, SELFPAY | PROVIDERS: Admitting Provider Student in an Organized Health Care Education/Training Program; Emergency Provider Emergency Medicine; Visit Provider Internal Medicine Cardiovascular Disease | DX: I48.91 Unspecified atrial fibrillation (principal) | CPT/HCPCS: 92960; 93312; 99223; 99232 ==

== ENCOUNTER → 2024-05-05 09:53 | Outpatient (BNVA) | payer MEDICARE, BC, SELFPAY | PROVIDERS: Visit Provider Internal Medicine Cardiovascular Disease ==

== ENCOUNTER 2024-08-02 15:32 | Outpatient (AMB) | payer MEDICARE, BC, SELFPAY ==
--- NOTE | 2024-08-02 15:37 | A.OFFVIS_ITS ---
Vital Signs 08/02/24 15:39 Height 5 ft 10 in Weight 160 lb 0.889 oz BMI 23.0 BP 90/60 Blood Pressure Location Lt brachial Position Sitting Pulse 69 Pulse Source Monitor Intake Visit Reasons: /[facility] Hospitalization Follow up Intake Note: [facility] f/up [employer] Work[employer] Required: No Accompanied by: Spouse Allergies No Known Allergies Allergy (Verified 08/02/24 15:39) Medication List - Last Reconciled 08/02/24 by Robbie Cruz MD apixaban (Eliquis) 5 mg PO BID dronedarone (Multaq) 400 mg PO BID rosuvastatin 5 mg PO DAILY HPI Comments Details: Pleasant 74 year gentleman who is here for follow-up. He was seen in the hospital when he presented with shortness of breath and new onset atrial fibrillation. He was started on Eliquis and underwent DEVIN cardioversion. He w as started on Multaq after that. He has background history of bioprosthetic aortic valve replacement in the past. Valve function was normal by echocardiography. Not in heart failure. Since then he has been in sinus rhythm and is here for follow-up. [facility] Medical History (Updated 08/02/24 @ 16:40 by Robbie Cruz MD) Hyperlipidemia Atrial fibrillation Surgical History Hx of colonoscopy H/O aortic valve replacement with porcine valve Family History (Updated 08/02/24 @ 15:43 by Emily Sanchez CMA) Mother Atrial fibrillation and flutter High blood pressure Stroke Father Sudden cardiac Social History Household Members: Spouse Housing: Apartment Are you a primary primary care md to a significant other at home: No Do you presently have visiting nurse or other home services: No Patient Tobacco Use Status: Never used Tobacco service: Yes Review of Systems Const Denies chills, Denies fatigue, Denies fever(s), Denies frequent falls, Denies weakness, Denies weight gain and Denies weight loss ENT Denies dizziness Card Denies chest pain, Denies leg edema, Denies lightheadedness, Denies palpitations, Denies dyspnea and Denies dyspnea on exertion Resp Denies cough, Denies dyspnea and Denies dyspnea on exertion GI Denies hematochezia Musc Denies abnormal gait, Denies muscle weakness, Denies numbness, Denies radiating pain into limb and Denies tingling Neuro Denies abnormal gait, Denies dizziness, Denies frequent falls, Denies numbness, Denies tingling and Denies weakness Endo Denies fatigue and Denies palpitations Physical Exam Vital Signs: Last Vital Signs Pulse 69 08/02/24 15:39 BP 90/60 08/02/24 15:39 BMI result Body Mass Index 23.0 GENERAL APPEARANCE: in no acute distress, pleasant. NECK: no carotid bruit, no jugular venous distention. SKIN: no suspicious lesions, warm and dry. HEART: no murmurs, regular rate and rhythm. LUNGS: clear to auscultation bilaterally. ABDOMEN: soft, nontender. EXTREMITIES: no edema. PERIPHERAL PULSES: equal. NEUROLOGIC: No gross deficits, AAO X 3 Office Procedures EKG Details: Sinus rhythm 69 beats per minute, left axis deviation, incomplete right bundle- branch block, minimal voltage criteria for left ventricular hypertrophy, QTC 452 milliseconds. [id number], Complete Assessment & Plan Assessment & Plan (1) Sleep disorder breathing: Code(s): G47.30 - Sleep apnea, unspecified Category: Medical (2) Atrial fibrillation: Code(s): I48.91 - Unspecified atrial fibrillation Category: Medical Plan Pleasant 74 year gentleman with background history of bioprosthetic aortic valve replacement in the past who recently was admitted at [facility] with dyspnea and new onset atrial fibrillation. He was cardioverted in the hospital and sent home on Eliquis and Multaq. He continues to use Multaq regularly and is in sinus rhythm. We discussed about treatment options including medications but I have explained to him that medications keep you in sinus examined 50% of times. I have also given him an options about considering ablation. He will do his own research and decide about that. He has been snoring and his has noted that he is snoring more than before. We previously had mild sleep apnea on a sleep study. We will arrange repeat sleep study for him. Sleep apnea has clear link with atrial fibrillation. Thank you for allowing me to participate in the care of your patient. Please feel free to contact me if you have any questions. Orders: Orders RT PSG in-lab sleep study Today Robbie Cruz MD G47.30 - Sleep apnea, unspecified Medications: Discontinued metoprolol succinate ER Discontinued Reason: Patient no longer taking 12.5 mg (1/2 x 25 mg) PO BID 90 tabs 0RF Emily Sanchez CMA Coding Level of Care Code Est Pt Level 4 (35102) Diagnoses Sleep disorder breathing G47.30 Atrial fibrillation I48.91 CPT Codes EKG - CPT: 67925-[id number], Complete ([id number])
[2024-08-02 15:39] VITALS: BP 90/60; PULSE 69; BMI 23.0
--- OUTSIDE RECORDS SUMMARY | 2024-08-02 16:45 | XMS_ITS | Patient Health Record ---
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 Name Role Phone JUAN DIEGO PEDRO Primary Care Provider [phone] Allergies No Known Allergies Reason For Referral No Information Medications Medication SIG (Take, Route, Frequency, Duration) Notes Start Date End Date Status Crestor 5 MG 1 tablet Orally Once a day 05/12/2024 Active Multaq 400 MG 1 tablet with meals Orally Twice a day 05/12/2024 Active Eliquis 5 MG 1 tablet Orally Twice a day Active Problems Problem Type SNOMED Code ICD Code Onset Dates Problem Status W/U Status Risk Notes Problem Mixed hyperlipidemia (360749069) Mixed hyperlipidemia (E78.2) Active confirmed Problem Unspecified atrial fibrillation (I48.91) Active confirmed Vital Signs Heart Rate 68 /min 05/12/2024 Blood pressure diastolic 60 mm Hg 05/12/2024 Oximetry 98 % 05/12/2024 Height 70 in 05/12/2024 Blood pressure systolic 110 mm Hg 05/12/2024 Weight 159.3 lbs 05/12/2024 BMI 22.85 kg/m2 05/12/2024 Encounters Encounter Location Date Provider Diagnosis [facility] [address] [facility] [address] [place] [address] 05/12/2024 JUAN DIEGO PEDRO Unspecified atrial fibrillation I48.91 ; Mixed hyperlipidemia E78.2 and Encounter for screening for malignant neoplasm of prostate Z12.5 [facility] [address] [facility] [address] [place] [address] 07/01/2024 JUAN DIEGO PEDRO Encounter for screen ing for malignant neoplasm of colon Z12.11 Assessments Encounter Date Diagnosis (ICD Code) Assessment Notes Treatment Notes Treatment Clinical Notes Section Notes 05/12/2024 Mixed hyperlipidemia (ICD-10 - E78.2) Markel is 74 years old gentleman with hyperlipidemia, aortic valve replacement, atrial fibrillation is here to establish care. Plan is as follows Atrial fibrillation. Recently diagnosed with atrial fibrillation 2 weeks ago and he was at [facility] where he was cardioverted and started on Eliquis and Multaq 400 mg 1 tablet twice a day. Today he is in sinus rhythm and he is tolerating the medications fine. Mixed hyperlipidemia. Continue on Crestor 5 mg daily. Screening blood work ordered. 05/12/2024 Unspecified atrial fibrillation (ICD-10 - I48.91) Markel is 74 years old gentleman with hyperlipidemia, aortic valve replacement, atrial fibrillation is here to establish care. Plan is as follows Atrial fibrillation. Recently diagnosed with atrial fibrillation 2 weeks ago and he was at [facility] where he was cardioverted and started on Eliquis and Multaq 400 mg 1 tablet twice a day. Today he is in sinus rhythm and he is tolerating the medications fine. Mixed hyperlipidemia. Continue on Crestor 5 mg daily. Screening blood work ordered. 07/01/2024 Encounter for screening for malignant neoplasm of colon (ICD-10 - Z12.11) 05/12/2024 Encounter for screening for malignant neoplasm of prostate (ICD-10 - Z12.5) Markel is 74 years old gentleman with hyperlipidemia, aortic valve replacement, atrial fibrillation is here to establish care. Plan is as follows Atrial fibrillation. Recently diagnosed with atrial fibrillation 2 weeks ago and he was at [facility] where he was cardioverted and started on Eliquis and Multaq 400 mg 1 tablet twice a day. Today he is in sinus rhythm and he is tolerating the medications fine. Mixed hyperlipidemia. Continue on Crestor 5 mg daily. Screening blood work ordered. Plan Of Treatment Pending Test Test Name Order Date Cologuard 07/01/2024 Future Test Test Name Order Date [id number] 05/12/2024 Lipid Panel-[id number] 05/12/2024 Comp. Metabolic Panel [id number] PSA (Serial Monitor)-[id number] 05/12/2024 Next Appt Details Provider Name:JUAN DIEGO PEDRO , 11/09/2024 08:00:00 AM, [address] [facility] [address], [place], [address], Insurance Providers Payer Name Payer Address Payer Phone Subscriber Number Group Number Insured Name Patient Relationship to Insured Coverage Start Date Coverage End Date Medicare [address] [place] [id number] [id number] [phone] [id number] Markel Summers Jr Self - patient is the insured [address] [place] [address] [address] [place] [address] [phone] [id number] Markel Summers Jr Self - patient is the insured Medical (General) History Medical History History ICD Code transient global amnesia atrial fibrillation and he sees Dr. Jamar miranda mixed hyperlipidemia Surgical History Surgery Date(Month/Year) aortic valve replacement in 2018
== END 2024-08-02 16:13 | disposition home or self-care (01) ==
LOC: HO.HCS 15:32
PROVIDERS: Visit Provider Internal Medicine Cardiovascular Disease
DX: G47.30 Sleep apnea, unspecified (principal); I48.91 Unspecified atrial fibrillation
CPT/HCPCS: 99214

== ENCOUNTER → 2024-08-02 15:32 | Outpatient (BNVA) | payer MEDICARE, BC, SELFPAY | PROVIDERS: Visit Provider Internal Medicine Cardiovascular Disease | DX: I48.91 Unspecified atrial fibrillation (principal); G47.30 Sleep apnea, unspecified; I45.2 Bifascicular block; R94.31 Abnormal electrocardiogram [ECG] [EKG] | CPT/HCPCS: 93005; 99212 ==

== ENCOUNTER → 2024-08-24 19:30 | Outpatient (BNV) | payer MEDICARE, BC, SELFPAY | PROVIDERS: PCP Hospitalist; Visit Provider Psychiatry & Neurology Neurology | DX: G47.33 Obstructive sleep apnea (adult) (pediatric) (principal) | CPT/HCPCS: 95810 ==

== ENCOUNTER → 2024-08-24 19:30 | Outpatient (REF) | payer MEDICARE, BC, SELFPAY | LOC: HO.SL 19:30 | PROVIDERS: PCP Hospitalist; Visit Provider Internal Medicine Cardiovascular Disease | DX: G47.30 Sleep apnea, unspecified (principal) | CPT/HCPCS: 95810 ==

== ENCOUNTER 2024-11-02 14:47 | Outpatient (AMB) | payer MEDICARE, BC, SELFPAY ==
[2024-11-02 15:04] VITALS: BP 100/64; PULSE 74; O2SAT 97; BMI 23.4
--- NOTE | 2024-11-02 15:04 | MHC.OFFVIS ---
Vital Signs 11/02/24 15:04 Height 5 ft 10 in Weight 163 lb 4 oz BMI 23.4 BP 100/64 Blood Pressure Location Rt brachial Position Sitting Pulse 74 Pulse Source Pulse Oximeter Pulse Oximetry (%) 97 Oxygen Delivery Method Room Air Intake Visit Reasons: INP - Sleep Apnea Intake Note: Patient presents [employer] SMITHA. He has been snoring and his has noted that he is snoring more than before. We previously had mild sleep apnea on a sleep study. PSG in chart(AHI-7, REM AHI-15, ROSIO 70%. APAP 5-20cm). Patient also witnessed apnea. Goes to bed 9-10pm wakes up 5:30-6am. Wakes up 1-2 times a night. Falls asleep very easily( after 4pm can fall alseep in chair). Accompanied by: Spouse Allergies No Known Allergies Allergy (Verified 11/02/24 15:07) HPI Comments Details: 74 year old male presents for a review of his PSG, referred to sleep medicine for evaluation of SMITHA by his PCP. PSG c/w Mild SMITHA with increased severity in REM, AHI is 7 and REM AHI is 15 with oxygen desaturation to 70%, will start cpap at [id number] and f/u for compliance. His notices he snores, has apneas and recent episodes of AFib in May 2024 he had cardioversion with Dr. Cruz and was started on Eliquis, Multaq 400mg po BID, continues to have PACs. He will have an ablation consultation December 2024 at [facility]. 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 He denies morning headaches, bruxism and jaw pain. He denies parasomnias. He has difficulty staying asleep and has 2-3 arousals for the bathroom at night. He is chronically fatigued. His mood, diet and memory are stable. He denies RLS symptoms. [facility] Medical History Hyperlipidemia Atrial fibrillation Surgical History Hx of colonoscopy H/O aortic valve replacement with porcine valve Family History Mother Atrial fibrillation and flutter High blood pressure Stroke Father Sudden cardiac Social History Household Members: Spouse Housing: Apartment Are you a primary occasional caregiver to a significant other at home: No Do you presently have visiting nurse or other home services: No Patient Tobacco Use Status: Never used Tobacco service: Yes Physical Exam Vital Signs: Last Vital Signs Pulse 74 11/02/24 15:04 BP 100/64 11/02/24 15:04 Pulse Ox 97 11/02/24 15:04 Oxygen Delivery Method Room Air 11/02/24 15:04 BMI result Body Mass Index 23.4 Const General: cooperative, healthy appearing and no acute distress Nutritional Appearance: average body habitus Orientation/consciousness: patient oriented x3 HEENT Face and sinus: Yes face symmetric Teeth and gingiva: other ([place]i score is 4) Eyes Pupils: Equal, round and reactive pupils present Neck Neck: Yes full ROM Resp Effort & Inspection: normal respiratory effort and able to speak in complete sentences Neuro General: patient oriented x3 and moves all extremities Cranial nerves: Yes Equal, round and reactive pupils present, Yes Normal accommodation reflex present, Yes Nystagmus not present, Yes Normal facial strength present, Yes Midline tongue present, Yes Ability to bilaterally rotate head present and Yes Ability to bilaterally elevate shoulders present Cognition (Neuro): normal cognition Gait exam (Neuro): Normal gait present Motor exam (neuro): 5/5 motor strength present throughout and Normal motor muscle tone present throughout Psych Appearance: grossly normal Mental Status: mental status grossly normal Speech and movement: Normal speech and movement present Thought process: Normal thought process present Thought content: Normal thought content present Results Reviewed Results Reviewed: PSG c/w Mild SMITHA with increased severity in REM, AHI is 7 and REM AHI is 15 with oxygen desaturation to 70%, will start cpap at [id number] and f/u for compliance. Chest xray Findings: No consolidation or effusion. Normal size heart. No acute fracture. IMPRESSION: 1. No acute findings. Assessment & Plan Assessment & Plan (1) SMITHA (obstructive sleep apnea): Code(s): G47.33 - Obstructive sleep apnea (adult) (pediatric) Category: Medical (2) Excessive daytime sleepiness: Code(s): G47.19 - Other hypersomnia Category: Medical Plan SMITHA mild AHI is 7 and increased REM AHI of 15, with oxygen desaturation to 77%, will start cpap therapy at [id number]. Excessive daytime sleepiness Labs to r/o deficiencies. RLS will monitor for symptoms. f/u in 3 months Orders: Orders Vitamin B12 and Folate Today G47.19 - Other hypersomnia Vitamin B1 Today G47.19 - Other hypersomnia TSH reflex Free T4 Today G47.19 - Other hypersomnia IRON PROFILE Today G47.19 - Other hypersomnia, G47.9 - Sleep disorder, unspecified, R53.83 - Other fatigue Homocysteine Today G47.19 - Other hypersomnia, G47.9 - Sleep disorder, unspecified, R53.83 - Other fatigue Hemoglobin A1c Today G47.19 - Other hypersomnia Vitamin D 25-OH Total Today G47.19 - Other hypersomnia Vitamin B6 Today G47.19 - Other hypersomnia Methylmalonic Acid Today G47.19 - Other hypersomnia, G47.9 - Sleep disorder, unspecified, R53.83 - Other fatigue Ferritin Today G47.19 - Other hypersomnia Patient Instructions: Sleep Hygiene provided: set a scheduled bedtime and wake time to help regulate the circadian rhythm and balance the release of pituitary hormones. Sleep in a dark room, temperatures below 68 degrees, and no devices n bed. Limit caffeinated products 6 hours prior to bed, and limit fluids 2-4 hours prior to bed. Gentle night yoga, diffusing essential oils, and playing soft music can be relaxing. Coding Level of Care Code New Pt Level 4 (86272) Diagnoses SMITHA (obstructive sleep apnea) G47.33 Excessive daytime sleepiness G47.19 Sleep Questionnaire Difficulty falling asleep: No Difficulty staying asleep?: Yes Number of arousals: 2-3x Snoring: Yes Witnessed apneas: Yes Gasping arousals: Yes Nocturia: Yes GERD: No Vivid dreams: No Acting out dreams: No Abnormal behavior in sleep: No Abnormal movements in sleep: No Morning headaches: No Excessive daytime sleepiness: Yes Daytime naps: No Restless legs: No Hallucinations: No Sleep paralysis: No Drop attacks: No Sleep Study: Yes CPAP: No
== END 2024-11-02 16:16 | disposition home or self-care (01) ==
LOC: HO.HSMS 14:48
PROVIDERS: PCP Hospitalist; Referring Provider Internal Medicine Cardiovascular Disease; Visit Provider Physician Assistant Medical
DX: G47.33 Obstructive sleep apnea (adult) (pediatric) (principal); G47.19 Other hypersomnia
CPT/HCPCS: 99204

== ENCOUNTER → 2024-11-02 14:47 | Outpatient (BNVA) | payer MEDICARE, BC, SELFPAY | PROVIDERS: PCP Hospitalist; Referring Provider Internal Medicine Cardiovascular Disease; Visit Provider Physician Assistant Medical | DX: G47.33 Obstructive sleep apnea (adult) (pediatric) (principal); G47.19 Other hypersomnia | CPT/HCPCS: 99202 ==

== ENCOUNTER 2025-01-31 14:14 | Outpatient (AMB) | payer MEDICARE, BC, SELFPAY ==
--- NOTE | 2025-01-31 14:20 | A.OFFVIS_ITS ---
Vital Signs 01/31/25 14:23 Height 5 ft 10 in Weight 175 lb 14.862 oz BMI 25.2 BP 110/64 Blood Pressure Location Lt brachial Position Sitting Pulse 70 Pulse Source Monitor Intake Visit Reasons: 3 mth f/up Intake Note: 3 mth f/up [employer] Required: No Accompanied by: Spouse Allergies No Known Allergies Allergy (Verified 11/02/24 15:07) Medication List - Last Reconciled 01/31/25 by Robbie Cruz MD apixaban (Eliquis) 5 mg PO BID rosuvastatin 5 mg PO DAILY HPI Comments Details: Pleasant 74 year gentleman who is here for follow-up. He was seen in the hospital when he presented with shortness of breath and new onset atrial fibrillation. He was started on Eliquis and underwent DEVIN cardioversion. He was started on Multaq after that. He has background history of bioprosthetic aortic valve replacement in the past. Valve function was normal by echocardiography. Not in heart failure. Since then he has been in sinus rhythm and is here for follow-up. 01/31/2025: He is here for follow-up. He is now status post ablation done at [facility] by Dr. Osuna. He has done well since then and has been taken off the Multaq at this stage. He is in sinus rhythm. He has been monitoring himself with Kardia Device and has not noticed any atrial fibrillation. [facility] Medical History Hyperlipidemia Atrial fibrillation Surgical History Hx of colonoscopy H/O aortic valve replacement with porcine valve Family History Mother Atrial fibrillation and flutter High blood pressure Stroke Father Sudden cardiac Social History Household Members: Spouse Housing: Apartment Are you a primary team primary care physician to a significant other at home: No Do you presently have visiting nurse or other home services: No Patient Tobacco Use Status: Never used Tobacco service: Yes Review of Systems Const Denies chills, Denies fatigue, Denies fever(s), Denies frequent falls, Denies weakness, Denies weight gain and Denies weight loss ENT Denies dizziness Card Denies chest pain, Denies leg edema, Denies lightheadedness, Denies palpitations, Denies dyspnea and Denies dyspnea on exertion Resp Denies cough, Denies dyspnea and Denies dyspnea on exertion GI Denies hematochezia Musc Denies abnormal gait, Denies muscle weakness, Denies numbness, Denies radiating pain into limb and Denies tingling Neuro Denies abnormal gait, Denies dizziness, Denies frequent falls, Denies numbness, Denies tingling and Denies weakness Endo Denies fatigue and Denies palpitations Physical Exam Vital Signs: Last Vital Signs Pulse 70 01/31/25 14:23 BP 110/64 01/31/25 14:23 BMI result Body Mass Index 25.2 GENERAL APPEARANCE: in no acute distress, pleasant. NECK: no carotid bruit, no jugular venous distention. SKIN: no suspicious lesions, warm and dry. HEART: no murmurs, regular rate and rhythm. LUNGS: clear to auscultation bilaterally. ABDOMEN: soft, nontender. EXTREMITIES: no edema. PERIPHERAL PULSES: equal. NEUROLOGIC: No gross deficits, AAO X 3 Office Procedures EKG Details: Sinus rhythm 70 beats per minute, normal axis, normal ECG, QTC 423 milliseconds. [id number], Complete Assessment & Plan Assessment & Plan (1) Sleep disorder breathing: Code(s): G47.30 - Sleep apnea, unspecified Category: Medical (2) Atrial fibrillation: Code(s): I48.91 - Unspecified atrial fibrillation Category: Medical Plan Pleasant 74 year gentleman with background history of bioprosthetic aortic valve replacement in the past who was admitted at [facility] with dyspnea and new onset atrial fibrillation. He was cardioverted in the hospital and sent home on Eliquis and Multaq. He subsequently underwent AFib ablation and is now off the Multaq. He is taking Eliquis and atorvastatin at this point. No bleeding concerns. Clinically stable. He will monitor himself with cardia at home. If he had any atrial fibrillation then we will discuss alternative strategies. Follow-up 6 months. Thank you for allowing me to participate in the care of your patient. Please feel free to contact me if you have any questions. Coding Level of Care Code Est Pt Level 4 (69560) Diagnoses Sleep disorder breathing G47.30 Atrial fibrillation I48.91 CPT Codes EKG - CPT: 49268-[id number], Complete ([id number])
[2025-01-31 14:23] VITALS: BP 110/64; PULSE 70; BMI 25.2
== END 2025-01-31 14:54 | disposition home or self-care (01) ==
LOC: HO.HCS 14:15
PROVIDERS: PCP Hospitalist; Visit Provider Internal Medicine Cardiovascular Disease
DX: G47.30 Sleep apnea, unspecified (principal); I48.91 Unspecified atrial fibrillation
CPT/HCPCS: 93010; 99214

== ENCOUNTER → 2025-01-31 14:14 | Outpatient (BNVA) | payer MEDICARE, BC, SELFPAY | PROVIDERS: PCP Hospitalist; Visit Provider Internal Medicine Cardiovascular Disease | DX: I48.91 Unspecified atrial fibrillation (principal); Z95.2 Presence of prosthetic heart valve; Z79.01 Long term (current) use of anticoagulants; G47.30 Sleep apnea, unspecified; E78.5 Hyperlipidemia, unspecified | CPT/HCPCS: 93005; 99212 ==

== ENCOUNTER 2025-02-18 07:51 | Outpatient (AMB) | payer MEDICARE, BC, SELFPAY ==
--- OUTSIDE RECORDS SUMMARY | 2025-02-18 07:53 | XMS_ITS | Patient Health Record ---
Author Organization [facility] Address [address] [facility] [facility] [address] [place] [address] Care Team Providers Care Jig Grinder Set Up Operator Name Role Phone JUAN DIEGO PEDRO Primary Care Provider Ramona Valerio Unavailable [phone] Allergies No Known Allergies Results Component Value Reference Range Notes Comp. Metabolic Panel ([id number] Reviewed date:10/12/2024 12:10:55 PM Interpretation: Performing Lab:[facility], [facility], Phone - [phone], Director - MDJodry Notes/Report: Glucose 94 70-99 mg/dL BUN 22 8-27 mg/dL Creatinine 0.96 0.76-1.27 mg/dL eGFR 84 >59 mL/min/1.73 BUN/Creatinine Ratio 23 10-24 Sodium 139 134-144 mmol/L Potassium 4.5 3.5-5.2 mmol/L Chloride 101 96-106 mmol/L Carbon Dioxide, Total 22 20-29 mmol/L Calcium 9.2 8.6-10.2 mg/dL Protein, Total 6.4 6.0-8.5 g/dL Albumin 4.1 3.8-4.8 g/dL Globulin, Total 2.3 1.5-4.5 g/dL Bilirubin, Total 0.6 0.0-1.2 mg/dL Alkaline Phosphatase 65 44-121 IU/L AST (SGOT) 36 0-40 IU/L ALT (SGPT) 28 0-44 IU/L Lipid Panel-[id number] Reviewed date:10/12/2024 12:10:52 PM Interpretation: Performing Lab:[facility], [address] [facility], [place], Phone - [phone], Director - MDJodry Notes/Report: Cholesterol, Total 180 100-199 mg/dL Triglycerides 58 0-149 mg/dL HDL Cholesterol 68 >39 mg/dL VLDL Cholesterol Deep 11 5-40 mg/dL LDL Chol Calc ([facility]) 101 0-99 mg/dL TSH-[id number] Reviewed date:10/12/2024 12:10:48 PM Interpretation: Performing Lab:[facility] [place], [address] [facility], [place], Phone - [phone], Director - Juliana Notes/Report: TSH 3.790 0.450-4.500 uIU/mL PSA (Serial Monitor)-[id number] Reviewed date:10/12/2024 12:10:45 PM Interpretation: Performing Lab:[facility] [place], [address], [place], Phone - [phone], Director - Juliana Notes/Report: Prostate Specific Ag 1.8 0.0-4.0 ng/mL Herminio ECLIA methodology. . According to the [employer], Serum PSA should decrease and remain at undetectable levels after radical prostatectomy. The AUA defines biochemical recurrence as an initial PSA value 0.2 ng/mL or greater followed by a subsequent confirmatory PSA value 0.2 ng/mL or greater. Values obtained with different assay methods or kits cannot be used interchangeably. Results cannot be interpreted as absolute evidence of the presence or absence of malignant disease. Reason For Referral Reason Psoriasis Please e valuate and treat Diagnosis 1 Psoriasis, unspecifi ed (L40.9) Referral Organization [facility] Referring Provider First Name ADAMSON Referring Provider Last Name [facility] Referring Provider Speciality Internal M edicine Referred Provider Specialty Dermatology General Notes Please call the roman ent to schedule the appointment, Encounter created and SMS sent to the pt.Jose Angel Charmain 11/11/2024 03:57:34 PM > Referral Priority Routine Medications Medication SIG (Take, Route, Frequency, Duration) Notes Start Date End Date Status Eliquis 5 MG 1 tablet Orally Twic e a day 05/12/2024 Active Medical Compression Stockings - Bilateral Medical Compression Stockings 20-30 mmHg Dx: I83.813; Change once daily; Duration: 30 days 09/13/2024 Active Multaq 400 MG 1 tablet with meals Orally Twice a day 05/12/2024 Active Crestor 5 MG 1 tablet Orally Once a day; Duration: 90 days 05/12/2024 Active Problems Problem Type SNOMED Code ICD Code Onset Dates Problem Status W/U Status Risk Notes Problem Mixed hyperlipidemia (225896343) Mixed hyperlipidemia (E78.2) Active confirmed Problem Paroxysmal atrial fibrillation (503125886) Paroxysmal atrial fibrillation (I48.0) Active confirmed Problem Atrial fibrillation (81965162) Unspecified atrial fibrillation (I48.91) Active confirmed Problem Pain co-occurrent and due to varicose veins of bilateral legs (1605188598344616 0) Varicose veins of bilateral lower extremities with pain (I83.813) Active confirmed Problem Psoriasis (2368747) Psoriasis, unspecified (L40.9) Active confirmed Problem Essential hypertension (03059076) Essential hypertension (I10) Active confirmed Vital Signs Heart Rate 60 /min 11/09/2024 Temperature 97.1 degrees Fahrenheit 11/09/2024 Oximetry 98 % 11/09/2024 Blood pressure diastolic 60 mm Hg 11/09/2024 Height 70 in 11/09/2024 Blood pressure systolic 110 mm Hg 11/09/2024 Weight 163.3 lbs 11/09/2024 BMI 23.43 kg/m2 11/09/2024 Encounters Encounter Location Date Provider Diagnosis [address] [place] [address] 05/12/2024 JUAN DIEGO PEDRO Unspecified atrial fibrillation I48.91 ; Mixed hyperlipidemia E78.2 and Encounter for screening for malignant neoplasm of prostate Z12.[address] [place] [address] 09/13/2024 [place] Essential hypertensi on I10 ; Paroxysmal atrial fibrillation I48.0 and Varicose veins of bilateral lower extremities with pain I83.[address] [place] [address] 11/09/2024 JUAN DIEGO PEDRO Encounter for genera l adult medical examination without abnormal findings Z00.00 ; Paroxysmal atrial fibrillation I48.0 and Varicose veins of bilateral lower extremities with pain I83.[address] [place] [address] 07/01/2024 JUAN DIEGO PEDRO Encounter for screen ing for malignant neoplasm of colon Z12.11 [facility] [address] [address] [place] [address] 09/07/2024 [facility] [address] [address] [place] [address] 09/14/2024 [facility] [address] [address] [place] [address] 11/09/2024 [facility] [address] [facility] [address] [place] [address] 11/11/[address] [place] [address] 11/29/2024 [facility] [address] [facility] [address] [place] [address] 01/21/2025 [facility] Assessments Encounter Date Diagnosis (ICD Code) Assessment Notes Treatment Notes Treatment Clinical Notes Section Notes 11/09/2024 Encounter for general adult medical examination without abnormal findings (ICD-10 - Z00.00) Markel is 74 years old gentleman with history of hyperlipidemia, aortic valve replacement and it is porcine valve in 2019 in [place], episode of atrial fibrillation after valve replacement , status post cardioversion currently on Eliquis and Multaq, venous insufficiency is here for annual physical. Plan is as follows Hypertension/atri al fibrillation.He is rate controlled and he is on Eliquis 5 mg 1 tablet twice a day. He follows up with [place] [facility]. Hypertension/mixe d hyperlipidemia. Blood pressure well controlled and LDL is above 100 and he is on Crestor 5 mg. Continue current regimen and diet restrictions discussed and goal LDL is under 70. Venous insufficiency. Continue compression stocking, low-sodium diet and stretching exercises. He is up-to-date on age-specific screening. He is full code and his Liz is his healthcare proxy. 09/13/2024 Paroxysmal atrial fibrillation (ICD-10 - I48.0) 74-year-old gentleman with history of hypertension hyperlipidemia assessment A. fib on Eliquis and mild tach is here today for bilateral lower extremity swelling. bilateral lower extremity edema most likely dependent edema currently resolved, evidence of lower extremity varicose veins, also long-standing. No evidence of heart failure. He is already on anticoagulation so do not expect a DVT. No evidence of cellulitis. Recommended patient to elevate his legs avoid long standing. We will also provide compression stockings. if continues to have swelling or develop any pain we will refer him to a vascular surgeon Hypertension blood pressure is well controlled 110/78 continue with home medications without any changes. Paroxysmal A. fib status post cardioversion on the multitrack, and Eliquis which will be continued 09/13/2024 Essential hypertension (ICD-10 - I10) 74-year-old gentleman with history of hypertension hyperlipidemia assessment A. fib on Eliquis and mild tach is here today for bilateral lower extremity swelling. bilateral lower extremity edema most likely dependent edema currently resolved, evidence of lower extremity varicose veins, also long-standing. No evidence of heart failure. He is already on anticoagulation so do not expect a DVT. No evidence of cellulitis. Recommended patient to elevate his legs avoid long standing. We will also provide compression stockings. if continues to have swelling or develop any pain we will refer him to a vascular surgeon Hypertension blood pressure is well controlled 110/78 continue with home medications without any changes. Paroxysmal A. fib status post cardioversion on the multitrack, and Eliquis which will be continued 07/01/2024 Encounter for screening for malignant neoplasm of colon (ICD-10 - Z12.11) 05/12/2024 Mixed hyperlipidemia (ICD-10 - E78.2) Markel is 74 years old gentleman with hyperlipidemia, aortic valve replacement, atrial fibrillation is here to establish care. Plan is as follows Atrial fibrillation. Recently diagnosed with atrial fibrillation 2 weeks ago and he was at [facility] where he was cardioverted and started on [...] 2 weeks ago and he was at [facility] where he was cardioverted and started on Eliquis and Multaq 400 mg 1 tablet twice a day. Today he is in sinus rhythm and he is tolerating the medications fine. Mixed hyperlipidemia. Continue on Crestor 5 mg daily. Screening blood work ordered. 09/13/2024 Varicose veins of bilateral lower extremities with pain (ICD-10 - I83.813) 74-year-old gentleman with history of hypertension hyperlipidemia assessment A. fib on Eliquis and mild tach is here today for bilateral lower extremity swelling. bilateral lower extremity edema most likely dependent edema currently resolved, evidence of lower extremity varicose veins, also long-standing. No evidence of heart failure. He is already on anticoagulation so do not expect a DVT. No evidence of cellulitis. Recommended patient to elevate his legs avoid long standing. We will also provide compression stockings. if continues to have swelling or develop any pain we will refer him to a vascular surgeon Hypertension blood pressure is well controlled 110/78 continue with home medications without any changes. Paroxysmal A. fib status post cardioversion on the multitrack, and Eliquis which will be continued 11/09/2024 Paroxysmal atrial fibrillation (ICD-10 - I48.0) Markel is 74 years old gentleman with history of hyperlipidemia, aortic valve replacement and it is porcine valve in 2019 in [place], episode of atrial fibrillation after valve replacement , status post cardioversion currently on Eliquis and Multaq, venous insufficiency is here for annual physical. Plan is as follows Hypertension/atri al fibrillation.He is rate controlled and he is on Eliquis 5 mg 1 tablet twice a day. He follows up with [place] [facility]. Hypertension/mixe d hyperlipidemia. Blood pressure well controlled and LDL is above 100 and he is on Crestor 5 mg. Continue current regimen and diet restrictions discussed and goal LDL is under 70. Venous insufficiency. Continue compression stocking, low-sodium diet and stretching exercises. He is up-to-date on age-specific screening. He is full code and his Liz is his healthcare proxy. 11/09/2024 Varicose veins of bilateral lower extremities with pain (ICD-10 - I83.813) Markel is 74 years old gentleman with history of hyperlipidemia, aortic valve replacement and it is porcine valve in 2019 in [place], episode of atrial fibrillation after valve replacement , status post cardioversion currently on Eliquis and Multaq, venous insufficiency is here for annual physical. Plan is as follows Hypertension/atri al fibrillation.He is rate controlled and he is on Eliquis 5 mg 1 tablet twice a day. He follows up with [place] [facility]. Hypertension/mixe d hyperlipidemia. Blood pressure well controlled and LDL is above 100 and he is on Crestor 5 mg. Continue current regimen and diet restrictions discussed and goal LDL is under 70. Venous insufficiency. Continue compression stocking, low-sodium diet and stretching exercises. He is up-to-date on age-specific screening. He is full code and his Liz is his healthcare proxy. 05/12/2024 Encounter for screening for malignant neoplasm of prostate (ICD-10 - Z12.5) Markel is 74 years old gentleman with hyperlipidemia, aortic valve replacement, atrial fibrillation is here to establish care. Plan is as follows Atrial fibrillation. Recently diagnosed with atrial fibrillation 2 weeks ago and he was at [facility] where he was cardioverted and started on Eliquis and Multaq 400 mg 1 tablet twice a day. Today he is in sinus rhythm and he is tolerating the medications fine. Mixed hyperlipidemia. Continue on Crestor 5 mg daily. Screening blood work ordered. Plan Of Treatment Pending Test Test Name Order Date Cologuard 07/01/2024 Next Appt Details Provider Name:JUAN DIEGO PEDRO , 05/18/2025 09:00:00 AM, [address] [place] [address], [phone], Insurance Providers Payer Name Payer Address Payer Phone Subscriber Number Group Number Insured Name Patient Relationship to Insured Coverage Start Date Coverage End Date Medicare [address] [place] [phone] [id number] Markel Summers Jr Self - patient is the insured [address] [place] [address] [address] [place] [address] [phone] [id number] Markel Summers Jr Self - patient is the insured Medical (General) History Medical History History ICD Code transient global amnesia atrial fibrillation and he sees Dr. Jamar miranda mixed hyperlipidemia Surgical History Surgery Date(Month/Year) aortic valve replacement in 2019
--- OUTSIDE RECORDS SUMMARY | 2025-02-18 07:53 | XMS_ITS ---
Author Organization Unknown ENCOUNTERS Encounter Performer Location Date Diagnosis Diagnosis Status Outpatient [address] [address] [id number] [facility] Outpatient PORFIRIO SANTANA[address] [address] [id number] [facility] Outpatient [address] [address] [id number] [facility] *Note: Encounters from your own facility or health system may be excluded. Allergies, Adverse Reactions, Alerts Allergen Type Severity Identification Date Medications Name Date Quantity Days Supplied GPI Number
--- OUTSIDE RECORDS SUMMARY | 2025-02-18 07:53 | XMS_ITS | Patient Health Record ---
Author Organization 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 Name Role Phone Joon Coe Primary Care Provider Sourav Jerome Unavailable [phone] Allergies No Known Allergies Reason For Referral No Information Medications Medication SIG (Take, Route, Frequency, Duration) Notes Start Date End Date Status calcipotriene topical Not-Taking rosuvastatin Active metoprolol Active betamethasone-calcipotrien e topical Active Immunizations Vaccine Route Administration Date Status Comme nts Influenza Unknown 12/17/2021 Administered Pneumococcal Unknown 11/09/2020 Administered Social History Tobacco Use: Social History Observation Description Date Details (start date - stop date) Former Smoker NA - NA Social History General Social Info Question Answer Notes Alcohol Did you have a drink containing alcohol i n the past year? 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 Problem Seborrheic keratosis (78042525) Seborrheic keratosis (L82.1) Active confirmed Problem Plaque psoriasis (562758183) Plaque psoriasis (L40.0) Active confirmed Plan Of Treatment No Information Insurance Providers Payer Name Payer Address Payer Phone Subscriber Number Group Number Insured Name Patient Relationship to Insured Coverage Start Date Coverage End Date [place] [address] [address] [place] [address] [id number] Markel Summers Self - patient is the insured BCBS of [facility] [address] [place] [address] [phone] [id number] Markel Summers Self - patient is the insured Medical (General) History Medical History History ICD Code Hypertension Psoriasis Vitiligo Surgical History Surgery Date(Month/Year) Heart Surgery 06/2018
[2025-02-18 08:04] VITALS: BP 124/70; PULSE 61; O2SAT 98; BMI 25.5
--- NOTE | 2025-02-18 08:04 | A.OFFVIS_ITS ---
Vital Signs 02/18/25 08:04 Height 5 ft 10 in Weight 177 lb 8 oz BMI 25.5 BP 124/70 Blood Pressure Location Rt brachial Position Sitting Pulse 61 Pulse Source Pulse Oximeter Pulse Oximetry (%) 98 Oxygen Delivery Method Room Air Intake Visit Reasons: 3 mo follow up Intake Note: Patient presents follow up SMITHA. No labs. Compliance in chart(82/82days, >=4hrs- 100%, Average Usage-7hr 43min, Med Pressure-11.3, Med Leaks-10.4, AHI-7.2). Patient looking to get a new mask. One he has is irritating his face. Accompanied by: Self / Same As Patient Allergies No Known Allergies Allergy (Verified 02/18/25 08:06) HPI Comments Details: 75 year old male presents for a review of his PSG. Jan 19 2025, Interval Med Hx ablation due to Afib, his AHI was 24.7 after sedation with anesthesia. PSG c/w Mild SMITHA with increased severity in REM, AHI is 7 and REM AHI is 15 with oxygen desaturation to 70%, on cpap therapy. SMITHA Compliance Report 11/2024 - 01/2025 reviewed with pt. Total avg use is 82/82days, and >=4hrs-100%, Average Usage-7hr 43min Med Pressure-11.3- 19.5, Med Leaks 69/min , AHI-7.2 Titration study is needed to determine pressures as he is having leaks and auto pap pressures 95% of the time at 46rnD41, with elevated AHI of 7.2/hr. He currently uses the Airfit N20 mask and it is digging into the skin around the nose. He would like to trial the airfit F20 full face medium sized mask with cpap liners for comfort. He feels a difference since using the cpap and is no longer snoring.He denies morning headaches, bruxism and jaw pain. He denies parasomnias. He has difficulty staying asleep and has 2-3 arousals for the bathroom at night this interrupts his sleep. He is still has residual fatigue, however improved. His mood, diet and memory are stable. He denies RLS symptoms. PMH He had AFib in May 2024 he had cardioversion with Dr. Cruz and was started on Eliquis, Multaq 400mg po BID, continues to have PACs. He will have an ablation consultation December 2024 at [facility]. 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 [facility] Medical History Hyperlipidemia Atrial fibrillation Surgical History Hx of colonoscopy H/O aortic valve replacement with porcine valve Family History Mother Atrial fibrillation and flutter High blood pressure Stroke Father Sudden cardiac Social History Household Members: Spouse Housing: Apartment Are you a primary resident care manager to a significant other at home: No Do you presently have visiting nurse or other home services: No Patient Tobacco Use Status: Never used Tobacco service: Yes Physical Exam Vital Signs: Last Vital Signs Pulse 61 02/18/25 08:04 BP 124/70 02/18/25 08:04 Pulse Ox 98 02/18/25 08:04 Oxygen Delivery Method Room Air 02/18/25 08:04 BMI result Body Mass Index 25.5 Const General: cooperative, healthy appearing and no acute distress Nutritional Appearance: average body habitus Orientation/consciousness: patient oriented x3 HEENT Face and sinus: Yes face symmetric Teeth and gingiva: other (Mallampti score is 4) Eyes Pupils: Equal, round and reactive pupils present Neck Neck: Yes full ROM Resp Effort & Inspection: normal respiratory effort and able to speak in complete sentences Neuro Other: over shoots on ffm gait is well balanced though feet externally rotated outwards. General: patient oriented x3 and moves all extremities Cranial nerves: Yes Equal, round and reactive pupils present, Yes Normal accommodation reflex present, Yes Nystagmus not present, Yes Normal facial strength present, Yes Midline tongue present, Yes Ability to bilaterally rotate head present and Yes Ability to bilaterally elevate shoulders present Cognition (Neuro): normal cognition Gait exam (Neuro): Normal gait present Motor exam (neuro): 5/5 motor strength present throughout and Normal motor muscle tone present throughout Psych Appearance: grossly normal Mental Status: mental status grossly normal Speech and movement: Normal speech and movement present Attitude: cooperative Thought process: Normal thought process present Thought content: Normal thought content present Insight: Good insight present (Psych) Results Reviewed Results Reviewed: SMITHA Compliance Report 11/2024 - 01/2025 reviewed with pt. Total avg use is 82/82days, and >=4hrs-100%, Average Usage-7hr 43min Med Pressure-11.3- 19.5, Med Leaks 69/min , AHI-7.2 Assessment & Plan Assessment & Plan (1) SMITHA (obstructive sleep apnea): Code(s): G47.33 - Obstructive sleep apnea (adult) (pediatric) Category: Medical (2) Excessive daytime sleepiness: Code(s): G47.19 - Other hypersomnia Category: Medical (3) Nocturia more than twice per night: Code(s): R35.1 - Nocturia Category: Medical Plan SMITHA mild AHI is 7 and increased REM AHI of 15, with oxygen desaturation to 77%, will start cpap therapy at 5-24bpI58. PSG titration study AHI is still elevated >7.2 will send him for titration study, I have written rx for a full face airfit p20 medium sized mask with chinstraps Nocturia, discussed limiting fluids 2 hours prior to bed, and decrease caffienated bevarages, is being followed by his urologist. Labs reviewed with pt. f/u in 3 month Orders: Orders RT PSG in-lab sleep titration Today G47.33 - Obstructive sleep apnea (adult) (pediatric) Patient Instructions: Please complete the following fasting labs to rule out deficiencies. CBC/CMP/ B12/ Vit D/ TSH/ Homocysteine and MMA/ Ferritin. Sleep hygiene and autopap settings reviewed with pt. AHI is still elevated, will send for titration to mangage pressures, new mask order is written. Coding Level of Care Code Est Pt Level 4 (09586) Diagnoses SMITHA (obstructive sleep apnea) G47.33 Excessive daytime sleepiness G47.19 Nocturia more than twice per night R35.1
== END 2025-02-18 09:02 | disposition home or self-care (01) ==
LOC: HO.HSMS 07:51
PROVIDERS: PCP Hospitalist; Visit Provider Physician Assistant Medical
DX: G47.33 Obstructive sleep apnea (adult) (pediatric) (principal); G47.19 Other hypersomnia; R35.1 Nocturia
CPT/HCPCS: 99214

== ENCOUNTER → 2025-02-18 07:51 | Outpatient (BNVA) | payer MEDICARE, BC, SELFPAY | PROVIDERS: PCP Hospitalist; Visit Provider Physician Assistant Medical | DX: G47.33 Obstructive sleep apnea (adult) (pediatric) (principal); Z99.89 Dependence on other enabling machines and devices; R35.1 Nocturia; G47.19 Other hypersomnia; I48.91 Unspecified atrial fibrillation; Z79.01 Long term (current) use of anticoagulants | CPT/HCPCS: 99212 ==